=== PATIENT | female | born 1990 | race Caucasian/White ===

== ENCOUNTER 2017-04-11 14:20 | Emergency (ER) | payer SELFPAY ==
[~2017-04-11] VITALS: Ht 162.6 cm; Wt 70.9 kg
[2017-04-11 15:05] VITALS: BP 132/82
== END 2017-04-11 15:34 | disposition home or self-care (01) ==
LOC: EMS 14:26
DX: F10.10 Alcohol abuse, uncomplicated (principal); F15.10 Other stimulant abuse, uncomplicated; F17.210 Nicotine dependence, cigarettes, uncomplicated
CPT/HCPCS: 99281

== ENCOUNTER 2017-08-11 15:12 | Emergency (ER) | payer MEDICAID ==
[~2017-08-11] VITALS: Ht 160 cm; Wt 63.6 kg
[2017-08-11 17:27] LABS: BASOPHILS % (AUTO) 0.8 % (0.0-2.0); EOSINOPHILS % (AUTO) 0.6 % (1.0-6.0); HEMATOCRIT 39.6 % (36-46); HEMOGLOBIN 13.2 g/dL (12.0-16.0); LYMPHOCYTES # (AUTO) 2.2 K/uL (1.0-4.8); MEAN CORPUSCULAR HEMOGLOBIN 29.3 pg (26.0-34.0); MEAN CORPUSCULAR HGB CONC 33.4 G/dL (31.0-37.0); MEAN CORPUSCULAR VOLUME 88 fL (80-100); MONOCYTES # (AUTO) 0.4 K/uL (0.1-1.0); MONOCYTES % (AUTO) 4.1 % (2.0-9.0); NEUTROPHILS # (AUTO) 6.8 K/uL (1.8-7.7); NEUTROPHILS % (AUTO) 71.5 % (40.0-70.0); PLATELET COUNT (AUTO) 292 K/uL (150-450); RED BLOOD CELL COUNT(AUTO) 4.51 MIL/uL (4.00-5.20); RED CELL DISTRIBUTION WIDTH 14.5 % (11.5-14.5)
[2017-08-11 18:02] LABS: ANION GAP 9 mmol/L (8-16); CALCIUM, TOTAL 8.9 mg/dL (8.8-10.5); CARBON DIOXIDE 27 mmol/L (22-29); CHLORIDE 106 mmol/L (98-107); GLOMERULAR FILTR. RATE CALC > 60 mL/min (>60); GLUCOSE,RANDOM 84 mg/dL (70-110); POTASSIUM 3.8 mmol/L (3.5-5.1); SODIUM SERUM 142 mmol/L (136-145); UREA NITROGEN, BLOOD 11 mg/dL (7-18)
[2017-08-11 18:08] LABS: ALANINE AMINOTRANSFERASE 21 U/L (12-78); ALBUMIN 3.8 g/dL (3.4-5.0); ALKALINE PHOSPHATASE 70 U/L (46-116); ASPARTATE AMINOTRANSFERASE 15 U/L (15-37); BILIRUBIN,TOTAL 0.3 mg/dL (0.1-1.0); TOTAL PROTEIN, SERUM 6.9 g/dL (6.4-8.2)
[2017-08-11] MEDS ORDERED: AZITHROMYCIN 250 MG TABLET PO ONE (18:15)
[2017-08-11] MEDS ORDERED: CefTRIAXone SODIUM 1 GM/VIAL IM ONE ×2 (18:15→18:45)
[2017-08-11] MEDS ORDERED: MetroNIDAZOLE 500 MG TABLET PO ONE (18:15)
[2017-08-11 18:19] LABS: BILIRUBIN,URINE NEGATIVE (NEGATIVE); GLUCOSE, URINE (UA) NEGATIVE (NEGATIVE); KETONES,URINE NEGATIVE (NEGATIVE); LEUKOCYTE ESTERASE ,URINE NEGATIVE (NEGATIVE); NITRATE,URINE NEGATIVE (NEGATIVE); OCCULT BLOOD,URINE NEGATIVE (NEGATIVE); PH,URINE 7.5 (5.0-8.0); PROTEIN,URINE NEGATIVE (NEGATIVE); UROBILINOGEN,URINE 0.2 mg/dL (<=1.0)
[2017-08-11 18:34] LABS: APPEARANCE,URINE HAZY (CLEAR); BACTERIA,URINE None Seen /HPF (None Seen); RBC,URINE None Seen /HPF (0-2); SQUAMOUS EPITHELIAL CELL,UR Moderate /LPF (None Seen); WBC,URINE None Seen /HPF (0-5)
[2017-08-11 18:39] LABS: HCG,QUANTITATIVE 1 mIU/mL (0-6)
[2017-08-11] MEDS ORDERED: LIDOCAINE HCL/PF 1% 2 ML VIAL IM ONE (18:45)
[2017-08-11 18:55] VITALS: BP 124/78
== END 2017-08-11 18:56 | disposition home or self-care (01) ==
LOC: EMS 15:13
DX: N93.9 Abnormal uterine and vaginal bleeding, unspecified (principal); N34.2 Other urethritis; N72 Inflammatory disease of cervix uteri; F15.10 Other stimulant abuse, uncomplicated; Z87.891 Personal history of nicotine dependence
CPT/HCPCS: 36415; 76801; 76817; 80053; 81001; 84702; 84703; 85025; 86850; 86900; 86901; 96372; 99285; J0696; J3490

== ENCOUNTER 2017-08-14 13:08 | Emergency (ER) | payer MEDICAID ==
[~2017-08-14] VITALS: Ht 167.6 cm; Wt 70.5 kg
[2017-08-14] MEDS ORDERED: OLANZapine 5 MG TABLET PO ONE (14:15)
[2017-08-14 15:27] VITALS: BP 128/86
== END 2017-08-14 15:29 | disposition home or self-care (01) ==
LOC: EMS 13:10
DX: F91.9 Conduct disorder, unspecified (principal); F10.20 Alcohol dependence, uncomplicated; F19.90 Other psychoactive substance use, unspecified, uncomplicated; Z87.891 Personal history of nicotine dependence
CPT/HCPCS: 99284

== ENCOUNTER 2017-08-19 18:00 | Emergency (ER) | payer MEDICAID ==
[~2017-08-19] VITALS: Ht 165.1 cm; Wt 70.5 kg
[2017-08-19 18:35] VITALS: BP 123/71
[2017-08-19] MEDS ORDERED: HydrOXYzine HCL 25 MG TABLET PO ONE (19:00)
== END 2017-08-19 19:46 | disposition home or self-care (01) ==
LOC: EMS 18:00
DX: L29.9 Pruritus, unspecified (principal); F19.90 Other psychoactive substance use, unspecified, uncomplicated; Z87.891 Personal history of nicotine dependence
CPT/HCPCS: 99283